=== PATIENT | female | born 1985 | race African-American/Black ===

== ENCOUNTER 2017-01-28 16:32 | Emergency (ER) | payer BC ==
[2017-01-28 17:00] VITALS: BP 137/88
[2017-01-28] MEDS ORDERED: Sodium Chloride 0.9% 10 ML Syringe FLUSH PRN (17:47)
[2017-01-28] MEDS ORDERED: HYDROmorphone 0.5 MG/0.5 ML Syringe IVPUSH ONE (17:47)
[2017-01-28] MEDS ORDERED: Sodium Chloride 0.9% 1,000 ML IV ONE (17:47)
[2017-01-28] MEDS ORDERED: HYDROmorphone 1 MG/ML Syringe IVPUSH ONE (19:16)
[2017-01-28] MEDS ORDERED: Iopamidol 612 MG/ML 150 ML Bottle IVPUSH ONE (19:23)
[2017-01-28] MEDS ORDERED: Sodium Chloride 0.9% 10 ML Syringe FLUSH ONE (19:23)
[2017-01-28] MEDS ORDERED: Diatrizoate Meglumine/Diatrizoate Sodium 37% 120 ML Bottle PO ONE (19:23)
[2017-01-28] MEDS ORDERED: Ondansetron 4 MG/2 ML SDV IVPUSH ONE (19:55)
--- NOTE | 2017-01-28 20:41 | CT ---
CT abdomen and pelvis Technique: Multiple axial sections were obtained from above the dome of the diaphragm inferiorly through the pubic symphysis. Intravenous and oral contrast was utilized. Delayed images were obtained through the bladder. Comparison: No previous abdominal and pelvic CT exam is available. Findings: Visualized lung bases are clear. Liver shows no focal parenchymal abnormality. Gallbladder shows no calcified gallstones. Spleen appears within normal limits. Adrenal glands show no nodule. Pancreas is within normal limits. Kidneys show symmetric contrast enhancement without hydronephrosis or mass. Adrenal glands show no nodules. Aorta shows no aneurysmal dilatation. No retroperitoneal adenopathy or mesenteric abnormalities are seen. No pelvic mass or adenopathy is seen. IUD is present within the endometrial cavity although appears low in position within the lower uterine segment. No free fluid or inflammatory change is seen. No bowel dilatation is seen. Appendix is not visualized. Delayed images shows contrast within the bladder. Bone window settings were reviewed which appears within normal limits for the patient's age. Impression: 1. IUD position is low within the uterus within the lower uterine cavity. 2. Appendix not visualized. 3. CT study of the abdomen and pelvis shows nothing acute. Diagnostic code #3
--- NOTE | 2017-01-28 20:49 | EDM.PDOC ---
ED HPI GENERAL MEDICAL PROBLEM - General Chief Complaint: Gastrointestinal Problem Stated Complaint: ABD PAIN,VOMITING Time Seen by Provider: 01/28/17 18:25 Source of Information: Reports: Patient History Limitations: Reports: No Limitations - History of Present Illness INITIAL COMMENTS - FREE TEXT/NARRATIVE: 31 year old female presents for evaluation and treatment of epigastric and RLQ abdominal pain. Patient reports she has been feeling nauseated for the last few weeks. She reports last night she took her nightly metformin. She then had one episode of vomiting last night. Reports today she developed epigastric pain. Reports the pain is an 8/10. States the pain is in the epigastric area and radiates interiorly into her abdomen. Reports it hurts to move. She denies any fevers, chest pain or shortness of breath. Reports diarrhea but state she always has diarrhea and darker stools. Patient reports the RLQ abdominal pain started once she arrived in the ED. Previous abdominal surgeries include a . Patient is a type 2 diabetic. Reports her sugars normally run in the 300s. Upper Abdominal Pain Score (Numeric/FACES): 9 - Related Data Allergies Allergy/AdvReac Type Severity Reaction Status Date / Time No Known Allergies Allergy Verified 01/28/17 16:56 Home Meds: Home Meds Acetaminophen/HYDROcodone [[place] 325-5 MG] 1 tab PO Q6H PRN #10 tab 11/10/13 [Rx ] Bactrim. 11/10/13 [History] Envocana. 11/10/13 [History] Levemir Insulin. 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: , Other (See Below) Other OB/BYN History: Neurological History: Reports: Migraines Psychiatric History: Reports: Depression Endocrine/Metabolic History: Reports: Diabetes, Type II Dermatologic History: Reports: Eczema - Past Surgical History Neurological Surgical History: Reports: None Social & Family History - Family History Family Medical History: Noncontributory - Tobacco Use Smoking Status *Q: Never Smoker Second Hand Smoke Exposure: No - Caffeine Use Caffeine Use: Reports: Soda - Alcohol Use Days Per Week of Alcohol Use: 2 Number of Drinks Per Day: 5 Total Drinks Per Week: 10 - Recreational Drug Use Recreational Drug Use: No ED ROS GENERAL - Review of Systems Review Of Systems: See Below Constitutional: Reports: Decreased Appetite. Denies: Fever Respiratory: Denies: Shortness of Breath Cardiovascular: Denies: Chest Pain GI/Abdominal: Reports: Abdominal Pain (epigastric an RLQ), Diarrhea (chronically ), Decreased Appetite, Nausea (last night now resolved), Vomiting (x 1 ) : Reports: No Symptoms Musculoskeletal: Denies: Shoulder Pain, Back Pain ED EXAM, GI/ABD - Physical Exam Exam: See Below Exam Limited By: No Limitations General Appearance: Alert, WD/WN, No Apparent Distress, Obese Throat/Mouth: Normal Inspection, Normal Lips, Normal Voice, No Airway Compromise Respiratory/Chest: No Respiratory Distress, Lungs Clear, Normal Breath Sounds Cardiovascular: Normal Peripheral Pulses, Regular Rate, Rhythm, No Murmur GI/Abdominal Exam: Normal Bowel Sounds, Soft, Tender (epigastric and RLQ), Other (negative psosas sign and obturators sign). No: Distended, Guarding, Rigid, Rebound Neurological: Alert, Oriented, Normal Cognition Psychiatric: Normal Affect, Normal Mood Skin Exam: Warm, Dry, Normal Color Course - Vital Signs Last Recorded V/S: Last Vital Signs Temp 36.6 C 01/28/17 16:56 Pulse 96 01/28/17 16:56 Resp 16 01/28/17 16:56 BP 137/88 01/28/17 16:56 Pulse Ox 96 01/28/17 16:56 - Orders/Labs/Meds Labs: Laboratory Tests 01/28/17 01/28/17 01/28/17 Range/Units 17:47 18:00 18:00 WBC 11.45 H (3.98-10.04) K/mm3 RBC 4.77 (3.98-5.22) M/mm3 Hgb 14.8 (11.2-15.7) gm/L Hct 44.4 (34.1-44.9) % MCV 93.1 (79.4-94.8) fl MCH 31.0 (25.6-32.2) pg MCHC 33.3 (32.2-35.5) g/dl RDW Std Deviation 43.6 (36.4-46.3) fL Plt Count 232 (182-369) K/mm3 MPV 11.7 (9.4-12.3) fl Neutrophils % (Manual) 79 H (40-60) % Band Neutrophils % 0 (0-10) % Lymphocytes % (Manual) 16 L (20-40) % Atypical Lymphs % 0 % Monocytes % (Manual) 4 (2-10) % Eosinophils % (Manual) 0 L (0.7-5.8) % Basophils % (Manual) 1 (0.1-1.2) Platelet Estimate Adequate Plt Morphology Comment Normal RBC Morph Comment Normal Sodium 136 (136-145) mEq/L Potassium 4.1 (3.5-5.1) mEq/L Chloride 98 (98-107) mEq/L Carbon Dioxide 26 (21-32) mEq/L Anion Gap 16.1 H (5-15) BUN 7 (7-18) mg/dL Creatinine 0.7 (0.55-1.02) mg/dL Est Cr Clr Drug Dosing 99.63 mL/min Estimated GFR (MDRD) > 60 (>60) mL/min BUN/Creatinine Ratio 10.0 L (14-18) Glucose 290 H (74-106) mg/dL Calcium 9.5 (8.5-10.1) mg/dL Total Bilirubin 0.4 (0.2-1.0) mg/dL AST 12 L (15-37) U/L ALT 25 (14-59) U/L Alkaline Phosphatase 104 (46-116) U/L C-Reactive Protein 1.0 (<1.0) mg/dL Total Protein 8.1 (6.4-8.2) g/dl Albumin 3.9 (3.4-5.0) g/dl Globulin 4.2 gm/dL Albumin/Globulin Ratio 0.9 L (1-2) Lipase 65 L (73-393) U/L HCG, Qual Negative (NEGATIVE) Urine Color (Yellow) Urine Appearance (Clear) Urine pH (5.0-8.0) Ur Specific [place] (1.005-1.030) Urine Protein (Negative) Urine Glucose (UA) (Negative) Urine Ketones (Negative) Urine Occult Blood (Negative) Urine Nitrite (Negative) Urine Bilirubin (Negative) Urine Urobilinogen (0.2-1.0) Ur Leukocyte Esterase (Negative) Urine RBC (0-5) /hpf Urine WBC (0-5) /hpf Ur Epithelial Cells (0-5) /hpf Urine Bacteria (FEW) /hpf Urine Mucus (FEW) /hpf 01/28/17 Range/Units 19:07 WBC (3.98-10.04) K/mm3 RBC (3.98-5.22) M/mm3 Hgb (11.2-15.7) gm/L Hct (34.1-44.9) % MCV (79.4-94.8) fl MCH (25.6-32.2) pg MCHC (32.2-35.5) g/dl RDW Std Deviation (36.4-46.3) fL Plt Count (182-369) K/mm3 MPV (9.4-12.3) fl Neutrophils % (Manual) (40-60) % Band Neutrophils % (0-10) % Lymphocytes % (Manual) (20-40) % Atypical Lymphs % % Monocytes % (Manual) (2-10) % Eosinophils % (Manual) (0.7-5.8) % Basophils % (Manual) (0.1-1.2) Platelet Estimate Plt Morphology Comment RBC Morph Comment Sodium (136-145) mEq/L Potassium (3.5-5.1) mEq/L Chloride (98-107) mEq/L Carbon Dioxide (21-32) mEq/L Anion Gap (5-15) BUN (7-18) mg/dL Creatinine (0.55-1.02) mg/dL Est Cr Clr Drug Dosing mL/min Estimated GFR (MDRD) (>60) mL/min BUN/Creatinine Ratio (14-18) Glucose (74-106) mg/dL Calcium (8.5-10.1) mg/dL Total Bilirubin (0.2-1.0) mg/dL AST (15-37) U/L ALT (14-59) U/L Alkaline Phosphatase (46-116) U/L C-Reactive Protein (<1.0) mg/dL Total Protein (6.4-8.2) g/dl Albumin (3.4-5.0) g/dl Globulin gm/dL Albumin/Globulin Ratio (1-2) Lipase (73-393) U/L HCG, Qual (NEGATIVE) Urine Color Yellow (Yellow) Urine Appearance Clear (Clear) Urine pH 7.0 (5.0-8.0) Ur Specific [place] 1.015 (1.005-1.030) Urine Protein Negative (Negative) Urine Glucose (UA) 2+ H (Negative) Urine Ketones 2+ H (Negative) Urine Occult Blood Negative (Negative) Urine Nitrite Negative (Negative) Urine Bilirubin Negative (Negative) Urine Urobilinogen 0.2 (0.2-1.0) Ur Leukocyte Esterase Negative (Negative) Urine RBC Not seen (0-5) /hpf Urine WBC Not seen (0-5) /hpf Ur Epithelial Cells 0-5 (0-5) /hpf Urine Bacteria Rare (FEW) /hpf Urine Mucus Not seen (FEW) /hpf Meds: Medications Discontinued Medications Generic Name Dose Route Start Last Admin Trade Name Freq PRN Reason Stop Dose Admin Al Hydroxide/Mg Hydroxide 30 0 ml 01/28/17 20:58 01/28/17 21:07 ml/ Lidocaine HCl 15 ml PO 01/28/17 20:59 45 ml ONETIME ONE Administration Diatrizoate Meglum/Diatrizoate Sod 90 ml 01/28/17 19:23 01/28/17 20:12 Gastrografin 37% PO 01/28/17 19:24 90 ml ONETIME ONE Administration Hydromorphone HCl 0.5 mg 01/28/17 17:47 01/28/17 18:13 Dilaudid IVPUSH 01/28/17 17:48 0.5 mg ONETIME ONE Administration Hydromorphone HCl 1 mg 01/28/17 19:16 01/28/17 19:21 Dilaudid IVPUSH 01/28/17 19:17 1 mg ONETIME ONE Administration Sodium Chloride 1,000 mls @ 999 mls/hr 01/28/17 17:47 01/28/17 18:11 Normal Saline IV 01/28/17 18:47 999 mls/hr ONETIME ONE Administration Iopamidol 125 ml 01/28/17 19:23 01/28/17 20:12 Isovue-300 (61%) IVPUSH 01/28/17 19:24 125 ml ONETIME ONE Administration Ondansetron HCl 4 mg 01/28/17 19:55 01/28/17 20:00 Zofran IVPUSH 01/28/17 19:56 4 mg ONETIME ONE Administration Sodium Chloride 10 ml 01/28/17 17:47 01/28/17 18:15 Saline Flush FLUSH 10 ml ASDIRECTED PRN Administration Keep Vein Open Sodium Chloride 10 ml 01/28/17 19:23 01/28/17 20:13 Saline Flush FLUSH 01/28/17 19:24 10 ml ONETIME ONE Administration - Radiology Interpretation Free Text/Narrative:: CT of the abdomen and pelvis with IV and oral contrast impression per Dr. Henao : 1. IUD position is low within the uterus with the lower uterine cavity. 2. Appendix not visualized. 3. CT study of the abdomen and pelvis shows nothing acute. CT Results Date: 01/28/17 - Re-Assessments/Exams Free Text/Narrative Re-Assessment/Exam: 01/28/17 19:29 labs returned with wbc slightly elevated at 11.45. CRP is is still within normal limits at 1.0, but near the high side of normal. Glucose is 290. Will obtain a CT to further evaluate episgastric and RLQ abd pain. 01/28/17 21:[address] results with the patient. No acute process occurring at this time. Patient reports to me later that she often gets pain in the RLQ that comes and goes. Often resolves with tylenol. RLQ pain has resolved since coming to the ER. epigastric pain slightly improved. I believe this is likely from gastritis. Will have her start omeprazole. Departure - Departure Time of Disposition: 21:25 Disposition: Home, Self-Care 01 Condition: Fair Clinical Impression: Epigastric pain, Gastritis - Discharge Information Prescriptions: Omeprazole 20 mg PO DAILY #30 cap.cr Ondansetron [Zofran ODT] 4 mg PO Q8H #20 tab.dis Referrals: Pricila Garnica NP [Primary Care Provider] - Forms: ED Department Discharge Additional Instructions: Take the Zofran 1 tab sublingual every 8 hours as needed for nausea. Start the omeprazole 1 tab daily. Follow up with your primary care provider early next week for a recheck of your symptoms. Avoids spicy foods and alcohol. [id number] Tylenol or Motrin as needed for the right lower abdominal pain. Please return to the ER if your symptoms change or worsen.
[2017-01-28] MEDS ORDERED: Alum Hydrox/Mag Hydrox/Simeth 30 ML, Lidocaine 2% 15 ML PO ONE ×2 (20:58)
== END 2017-01-28 21:39 | disposition home or self-care (01) ==
LOC: JD.ED 16:32
DX: K29.70 Gastritis, unspecified, without bleeding (principal); E11.9 Type 2 diabetes mellitus without complications; Z79.84 Long term (current) use of oral hypoglycemic drugs; F32.9 Major depressive disorder, single episode, unspecified; Z79.899 Other long term (current) drug therapy
CPT/HCPCS: 36415; 74177; 80053; 81001; 83690; 84703; 85025; 86140; 96361; 96374; 96375; 96376; 99284; A9270; J1170; J2405; J7040; J7050; Q9963; Q9967

== ENCOUNTER 2017-02-25 00:26 | Emergency (ER) | payer BC ==
[2017-02-25 00:36] VITALS: BP 127/85
--- NOTE | 2017-02-25 01:45 | EDM.PDOC ---
ED HPI GENERAL MEDICAL PROBLEM - General Chief Complaint: General Stated Complaint: FEVER/COUGH/HEADACHE Time Seen by Provider: 02/25/17 00:42 Source of Information: Reports: Patient, RN Notes Reviewed History Limitations: Reports: No Limitations - History of Present Illness INITIAL COMMENTS - FREE TEXT/NARRATIVE: The patient states that she has had a cough and headache since Thursday, 2016. Her cough is predominantly dry, occasionally productive of greenish sputum. She states that she was seen by her PCP, Pricila Garnica, today. She states that no tests were done, but that she was told that she has bronchitis. She was prescribed Levaquin, and has taken a single dose today. She states that she also took some NyQuil today, along with some cough drops. She now presents to the ED stating that the Levaquin has not helped. She reports a fever up to 101.5 around 00:30 this morning (her temperature was measured at 100.2 here in the ED). She reports shortness of breath, even at rest. She states that her cough is worse if she is upright, and during her examination, she had a paroxysm of cough. She denies wheezing. She confirms nasal congestion and a sore throat. She reports a headache with photophobia. No prior similar symptoms. Treatments H[employer] WORKER: Reports: Other (see below) Other Treatments H[employer] WORKER: Nyquil Throat Pain Score (Numeric/FACES): 10 - Related Data Allergies Allergy/AdvReac Type Severity Reaction Status Date / Time No Known Allergies Allergy Verified 02/25/17 00:33 Home Meds: Home Meds Levemir Insulin. 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: Psychiatric History: Reports: Depression, Other (See Below) (Insomnia) Endocrine/Metabolic History: Reports: Diabetes, Type II, Obesity/BMI 30+ Dermatologic History: Reports: Eczema - Past Surgical History Female Surgical History: Reports: Section (x 1) Neurological Surgical History: Reports: None Social & Family History - Family History Family Medical History: Noncontributory - Tobacco Use Smoking Status *Q: Never Smoker Second Hand Smoke Exposure: No - Caffeine Use Caffeine Use: Reports: Coffee, Soda, Tea - Alcohol Use Alcohol Use History: Yes Days Per Week of Alcohol Use: 2 Number of Drinks Per Day: 5 Total Drinks Per Week: 10 Alcohol Use Frequency: Socially - Recreational Drug Use Recreational Drug Use: No - Living Situation & Occupation Living situation: Reports: Single, with Family 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) ED ROS GENERAL - Review of Systems Review Of Systems: See Below Constitutional: Reports: No Symptoms HEENT: Reports: No Symptoms Respiratory: Reports: No Symptoms Cardiovascular: Reports: No Symptoms Endocrine: Reports: No Symptoms GI/Abdominal: Reports: No Symptoms : Reports: No Symptoms Musculoskeletal: Reports: No Symptoms Skin: Reports: No Symptoms Neurological: Reports: No Symptoms Psychiatric: Reports: No Symptoms Hematologic/Lymphatic: Reports: No Symptoms Immunologic: Reports: No Symptoms ED EXAM, GENERAL - Physical Exam Exam: See Below Exam Limited By: No Limitations General Appearance: Alert, WD/WN, No Apparent Distress Eye Exam: Bilateral Eye: Normal Inspection Ears: Normal External Exam, Normal Canal, Hearing Grossly Normal, Normal TMs Nose: Normal Inspection, Normal Mucosa, No Blood Throat/Mouth: Normal Inspection, Normal Lips, Normal Teeth, Normal Gums, Normal Oropharynx, Normal Voice, No Airway Compromise Head: Atraumatic, Normocephalic Neck: Normal Inspection, Supple, Non-Tender, Full Range of Motion. No: Lymphadenopathy (L), Lymphadenopathy (R) Respiratory/Chest: No Respiratory Distress, Lungs Clear, Normal Breath Sounds, No Accessory Muscle Use. No: Crackles, Rales, Wheezing Cardiovascular: Normal Peripheral Pulses, Regular Rate, Rhythm, No Gallop, No JVD, No Murmur, No Rub Peripheral Pulses: 4+: Radial (L), Radial (R) GI/Abdominal: Normal Bowel Sounds, Soft, Non-Tender, No Organomegaly, No Distention, No Abnormal Bruit, No Mass, Other (obese) (Female) Exam: Deferred Rectal (Female) Exam: Deferred Back Exam: Normal Inspection, Full Range of Motion, NT Extremities: Normal Inspection, Normal Range of Motion, No Pedal Edema, Normal Capillary Refill Neurological: Alert, Oriented, Normal Cognition, No Motor/Sensory Deficits Psychiatric: Normal Affect Skin Exam: Warm, Dry, Intact, Normal Color, No Rash Lymphatic: No Adenopathy Course - Vital Signs Last Recorded V/S: Last Vital Signs Temp 37.9 C 02/25/17 00:33 Pulse 124 H 02/25/17 00:33 Resp 20 02/25/17 00:33 BP 127/85 02/25/17 00:33 Pulse Ox 92 L 02/25/17 00:33 - Orders/Labs/Meds Orders: Active Orders 24 hr Category Date Time Status Chest 2V [CR] Stat Exams 02/25/17 01:01 Taken CULTURE STREP A CONFIRMATION [RM] Stat Lab 02/25/17 01:04 Results INR,PT,PROTHROMBIN TIME [COAG] Stat Lab 02/25/17 01:15 Received PTT,PARTIAL THROMBOPLSTIN TIME [COAG] Stat Lab 02/25/17 01:15 Received STREP SCRN A RAPID W CULT CONF [RM] Stat Lab 02/25/17 01:04 Results Labs: Laboratory Tests 02/25/17 02/25/17 02/25/17 Range/Units 01:15 01:15 01:15 WBC 13.84 H (3.98-10.04) K/mm3 RBC 4.51 (3.98-5.22) M/mm3 Hgb 14.3 (11.2-15.7) gm/L Hct 41.8 (34.1-44.9) % MCV 92.7 (79.4-94.8) fl MCH 31.7 (25.6-32.2) pg MCHC 34.2 (32.2-35.5) g/dl RDW Std Deviation 42.1 (36.4-46.3) fL Plt Count 191 (182-369) K/mm3 MPV 11.6 (9.4-12.3) fl Neutrophils % (Manual) 80 H (40-60) % Band Neutrophils % 3 (0-10) % Lymphocytes % (Manual) 12 L (20-40) % Atypical Lymphs % 0 % Monocytes % (Manual) 4 (2-10) % Eosinophils % (Manual) 0 L (0.7-5.8) % Basophils % (Manual) 1 (0.1-1.2) Platelet Estimate Adequate Plt Morphology Comment Normal Anisocytosis 1+ slight RBC Morph Comment Not Reportable D-Dimer, Quantitative 0.28 (0.19-0.59) mg/L Sodium 130 L (136-145) mEq/L Potassium 4.5 (3.5-5.1) mEq/L Chloride 94 L (98-107) mEq/L Carbon Dioxide 27 (21-32) mEq/L Anion Gap 13.5 (5-15) BUN 9 (7-18) mg/dL Creatinine 1.0 (0.55-1.02) mg/dL Est Cr Clr Drug Dosing 69.74 mL/min Estimated GFR (MDRD) > 60 (>60) mL/min BUN/Creatinine Ratio 9.0 L (14-18) Glucose 479 H (74-106) mg/dL Calcium 9.9 (8.5-10.1) mg/dL Total Bilirubin 0.4 (0.2-1.0) mg/dL AST 11 L (15-37) U/L ALT 24 (14-59) U/L Alkaline Phosphatase 120 H (46-116) U/L Total Protein 8.0 (6.4-8.2) g/dl Albumin 3.5 (3.4-5.0) g/dl Globulin 4.5 gm/dL Albumin/Globulin Ratio 0.8 L (1-2) Urine HCG, Qual (NEGATIVE) 02/25/17 Range/Units 01:15 WBC (3.98-10.04) K/mm3 RBC (3.98-5.22) M/mm3 Hgb (11.2-15.7) gm/L Hct (34.1-44.9) % MCV (79.4-94.8) fl MCH (25.6-32.2) pg MCHC (32.2-35.5) g/dl RDW Std Deviation (36.4-46.3) fL Plt Count (182-369) K/mm3 MPV (9.4-12.3) fl Neutrophils % (Manual) (40-60) % Band Neutrophils % (0-10) % Lymphocytes % (Manual) (20-40) % Atypical Lymphs % % Monocytes % (Manual) (2-10) % Eosinophils % (Manual) (0.7-5.8) % Basophils % (Manual) (0.1-1.2) Platelet Estimate Plt Morphology Comment Anisocytosis RBC Morph Comment D-Dimer, Quantitative (0.19-0.59) mg/L Sodium (136-145) mEq/L Potassium (3.5-5.1) mEq/L Chloride (98-107) mEq/L Carbon Dioxide (21-32) mEq/L Anion Gap (5-15) BUN (7-18) mg/dL Creatinine (0.55-1.02) mg/dL Est Cr Clr Drug Dosing mL/min Estimated GFR (MDRD) (>60) mL/min BUN/Creatinine Ratio (14-18) Glucose (74-106) mg/dL Calcium (8.5-10.1) mg/dL Total Bilirubin (0.2-1.0) mg/dL AST (15-37) U/L ALT (14-59) U/L Alkaline Phosphatase (46-116) U/L Total Protein (6.4-8.2) g/dl Albumin (3.4-5.0) g/dl Globulin gm/dL Albumin/Globulin Ratio (1-2) Urine HCG, Qual Negative (NEGATIVE) Meds: Medications Discontinued Medications Generic Name Dose Route Start Last Admin Trade Name Freq PRN Reason Stop Dose Admin Insulin Human Regular 10 unit 02/25/17 01:57 Humulin R SUBCUT 02/25/17 01:58 ONETIME STA Protocol Promethazine HCl/Codeine 5 ml 02/25/17 02:06 Phenergan With Codeine PO 02/25/17 02:07 ONETIME STA - Re-Assessments/Exams Free Text/Narrative Re-Assessment/Exam: 02/25/17 01:40 Two-view chest radiograph appears to be grossly normal. Cardiac silhouette is within normal limits. No pulmonary vascular congestion. No pleural effusions. No focal infiltrate. No pneumothorax. Formal read per the Radiologist pending. 02/25/17 01:52 The patient's CBC is remarkable for a WBC count elevated at 13.84 with 3% bandemia. The remainder of the CBC is normal. The patient's CMP is remarkable for sodium depressed at 130, however, the patient's blood glucose is elevated at 479, creating a pseudohyponatremia. The corrected sodium is 135. 02/25/17 01:58 I discussed the elevated blood glucose with the patient. She states that she has been drinking a lot of juice recently. She is agreeable to receiving 10 units of regular insulin. 02/25/17 02:11 Test results discussed with the patient. Demi's workup is grossly unremarkable, with the exception of the elevated blood glucose. I believe her cough and fever are due to a viral URI with postnasal drip. I have ordered some Phenergan with codeine cough syrup, and will prescribe the same. As there is no finding of an infection, I am recommending that the patient discontinue the Levaquin. Departure - Departure Time of Disposition: 02:13 Disposition: Home, Self-Care 01 Condition: Good Clinical Impression: Viral URI with cough, Hyperglycemia due to type 2 diabetes mellitus - Discharge Information Prescriptions: Codeine/Promethazine [Phenergan with Codeine] 5 ml PO QPM #5 cup Referrals: Pricila Garnica NP [Primary Care Provider] - Forms: ED Department Discharge Additional Instructions: You were seen in the emergency room for a cough, fever, and headache. Workup in the ER included blood work, a rapid strep test, an influenza swab, a urine test, and a chest x-ray. Your workup found your blood sugar to be significantly elevated at 479. You were given insulin. The remainder of your workup was unremarkable. You do not have pneumonia. You do not have bronchitis. You do not have strep throat. You do not have influenza. Your symptoms are MOST LIKELY caused by a viral URI with postnasal drip. Unfortunately, there are no medicines to treat a viral URI - it will have to run its course. Take 5 mL of the cough syrup in the evening. Hopefully this will help control your cough and help you to sleep. Do not drive for 8 hours after taking this medicine. This medicine may cause constipation, so consider taking a stool softener. We recommend that you discontinue taking the Levaquin. We recommend that you throw it in the trash - do not flush it down the toilet. If any other problems, please do not hesitate to return to the ER. - My Orders Last 24 Hours: My Active Orders 02/25/17 01:01 Chest 2V [CR] Stat 02/25/17 01:04 CULTURE STREP A CONFIRMATION [RM] Stat STREP SCRN A RAPID W CULT CONF [RM] Stat 02/25/17 01:15 INR,PT,PROTHROMBIN TIME [COAG] Stat PTT,PARTIAL THROMBOPLSTIN TIME [COAG] Stat - Assessment/Plan Last 24 Hours: My Active Orders 02/25/17 01:01 Chest 2V [CR] Stat 02/25/17 01:04 CULTURE STREP A CONFIRMATION [RM] Stat STREP SCRN A RAPID W CULT CONF [RM] Stat 02/25/17 01:15 INR,PT,PROTHROMBIN TIME [COAG] Stat PTT,PARTIAL THROMBOPLSTIN TIME [COAG] Stat
[2017-02-25] MEDS ORDERED: Insulin Regular, Human 100 Units/ML 3 ML Vial SUBCUT STA (01:57)
[2017-02-25] MEDS ORDERED: Codeine/Promethazine 10-6.25 MG/5 ML Syrup 5 ML UD Cup PO STA (02:06)
--- NOTE | 2017-02-25 07:17 | CR ---
Chest: Two views of the chest were obtained. Comparison: No prior study. Heart size and mediastinum are within normal limits. Lungs are clear. Bony structures are unremarkable. Impression: 1. Nothing acute is appreciated on two-view chest x-ray. Diagnostic code #1
== END 2017-02-25 02:36 | disposition home or self-care (01) ==
LOC: JD.ED 00:26
DX: J06.9 Acute upper respiratory infection, unspecified (principal); E11.65 Type 2 diabetes mellitus with hyperglycemia; E66.9 Obesity, unspecified; Z79.4 Long term (current) use of insulin; Z79.899 Other long term (current) drug therapy; Z68.35 Body mass index [BMI] 35.0-35.9, adult
CPT/HCPCS: 36415; 71020; 80053; 81025; 85025; 85379; 85610; 85730; 87081; 87430; 87804; 96372; 99284; A9270; J1817; 99283

== ENCOUNTER 2017-09-24 06:27 | Day surgery (SDC) | payer BC ==
[~2017-09-24 06:27] MED LIST: Lactated Ringers 1,000 ML IV SCH; Lidocaine 1%/Sod Bicarbonate in NS 8.4% 1 ML Syringe IDERM PRN; Sodium Chloride 0.9% 10 ML Syringe FLUSH PRN
[2017-09-24] MEDS ORDERED: Propofol 200 MG/20 ML SDV ONE (06:43)
[2017-09-24] MEDS ORDERED: Midazolam 1 MG/ML 2 ML SDV ONE (06:43)
[2017-09-24] MEDS ORDERED: fentaNYL 250 MCG/5 ML SDV ONE (06:43)
[2017-09-24] MEDS ORDERED: Ondansetron 4 MG/2 ML SDV ONE (06:44)
[2017-09-24] MEDS ORDERED: Lidocaine 1% 4 ML ONE (06:44)
[2017-09-24] MEDS ORDERED: Dexamethasone 4 MG/ML 5 ML MDV ONE (06:44)
[2017-09-24] MEDS ORDERED: ceFAZolin 1 GM Vial ONE (06:45)
[2017-09-24] MEDS: Sodium Chloride 0.9% 1,000 ML IV SCH ×2 (06:50→08:58)
--- NOTE | 2017-09-24 07:00 | PCM.PREANE ---
Preanesthetic Assessment - Procedure Proposed Procedure: Right ulnar nerve decompression - Anesthesia/Transfusion/Family Hx Anesthesia History: Prior Anesthesia Without Reaction Family History of Anesthesia Reaction: No Transfusion History: No Prior Transfusion(s) Intubation History: Unknown - Review of Systems General: No Symptoms Pulmonary: No Symptoms Cardiovascular: No Symptoms Gastrointestinal: No Symptoms Neurological: No Symptoms Other: Reports: Diabetes (type 2 ), Depression - Physical Assessment NPO Status Date: 09/23/17 NPO Status Time: 23:59 Pulse: 106 O2 Sat by Pulse Oximetry: 95 Respiratory Rate: 20 Blood Pressure: 120/74 Temperature: 37.0 C Height: 1.63 m Weight: 108.862 kg ASA Class: 2 Mental Status: Alert & Oriented x3 Airway Class: Mallampati = 1 Dentition: Reports: Missing Tooth/Teeth (left molar missing ) Thyro-Mental Finger Breadths: 3 Mouth Opening Finger Breadths: 3 ROM/Head Extension: Full Lungs: Clear to Auscultation, Normal Respiratory Effort Cardiovascular: Regular Rate, Regular Rhythm - Lab Values: Laboratory Last Values MRSA (PCR) Negative 09/22/17 14:37 - Allergies Allergies/Adverse Reactions: Allergies Allergy/AdvReac Type Severity Reaction Status Date / Time No Known Allergies Allergy Verified 09/23/17 16:09 - Blood Blood Available: No - Anesthesia Plan Pre-Op Medication Ordered: None - Acknowledgements Anesthesia Type Planned: General Anesthesia Pt an Appropriate Candidate for the Planned Anesthesia: Yes Alternatives and Risks of Anesthesia Discussed w Pt/Guardian: Yes Pt/Guardian Understands and Agrees with Anesthesia Plan: Yes PreAnesthesia Questionnaire HEENT History: Reports: Impaired Vision, Other (See Below) Other HEENT History: glasses Cardiovascular History: Reports: None Respiratory History: Reports: Other (See Below) Other Respiratory History: URI Gastrointestinal History: Reports: Gastritis, Other (See Below) Other Gastrointestinal History: abdominal pain Genitourinary History: Reports: 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 SUBSTANCE ABUSE History: Reports: Other OB/BYN History: , HPV Musculoskeletal History: Reports: None Neurological History: Reports: Migraines Psychiatric History: Reports: Depression, Other (See Below) Endocrine/Metabolic History: Reports: Diabetes, Type II, Obesity/BMI 30+ Hematologic History: Reports: Anemia Immunologic History: Reports: None Oncologic (Cancer) History: Reports: None Dermatologic History: Reports: Eczema - Past Surgical History Head Surgeries/Procedures: Reports: None HEENT Surgical History: Reports: None Cardiovascular Surgical History: Reports: None Respiratory Surgical History: Reports: None Female Surgical History: Reports: Section Endocrine Surgical History: Reports: None Neurological Surgical History: Reports: None Musculoskeletal Surgical History: Reports: None Oncologic Surgical History: Reports: None Dermatological Surgical History: Reports: None - SUBSTANCE USE Smoking Status *Q: Never Smoker Second Hand Smoke Exposure: No Days Per Week of Alcohol Use: 2 Number of Drinks Per Day: 5 Total Drinks Per Week: 10 Recreational Drug Use History: No - HOME MEDS Home Medications: Home Meds Dulaglutide [Trulicity] 0.75 mg SQ WEEKLY 02/25/17 [History] Insulin Aspart [NovoLOG] 0 unit SUBCUT TID 02/25/17 [History] Zolpidem Tartrate [Ambien] 5 mg PO BEDTIME PRN 02/25/17 [History] Sertraline HCl [Zoloft] 100 mg PO DAILY 09/23/17 [History] Terconazole 1 appful VAG ASDIRECTED PRN 09/23/17 [History] valACYclovir HCl [Valacyclovir] 500 mg PO ASDIRECTED PRN 09/23/17 [History] - CURRENT (IN HOUSE) MEDS Current Meds: Current Medications Lactated Ringer's (Ringers, Lactated) 1,000 mls @ 125 mls/hr IV ASDIRECTED KENISHA Stop: 09/24/17 23:00 Lidocaine/Sodium Bicarbonate (Buffered Lidocaine 1% In Ns 8.4%) 0.25 ml IDERM ONETIME PRN PRN Reason: Prior to IV Start Stop: 09/24/17 18:00 Sodium Chloride (Saline Flush) 10 ml FLUSH ASDIRECTED PRN PRN Reason: Keep Vein Open Stop: 09/24/17 18:00 Discontinued Medications Cefazolin Sodium (Ancef) Confirm Administered Dose 2 gm .ROUTE .STK-MED ONE Stop: 09/24/17 06:46 Dexamethasone (Dexamethasone) Confirm Administered Dose 20 mg .ROUTE .STK-MED ONE Stop: 09/24/17 06:45 Fentanyl (Sublimaze) Confirm Administered Dose 250 mcg .ROUTE .STK-MED ONE Stop: 09/24/17 06:44 Lidocaine HCl (Xylocaine-Mpf 1%) Confirm Administered Dose 4 mls @ as directed .ROUTE .STK-MED ONE Stop: 09/24/17 06:45 Midazolam HCl (Versed 1 Mg/Ml) Confirm Administered Dose 2 mg .ROUTE .STK-MED ONE Stop: 09/24/17 06:44 Ondansetron HCl (Zofran) Confirm Administered Dose 4 mg .ROUTE .STK-MED ONE Stop: 09/24/17 06:45 Propofol (Diprivan 20 Ml) Confirm Administered Dose 200 mg .ROUTE .STK-MED ONE Stop: 09/24/17 06:44
[2017-09-24] MEDS: Bupivacaine 0.25% 30 ML SDV ONE ×2 (07:42→07:58)
--- NOTE | 2017-09-24 08:22 | PCM.POSTAN ---
POST ANESTHESIA ASSESSMENT - MENTAL STATUS Mental Status: Alert, Oriented - VITAL SIGNS Pulse Rate: 107 SaO2: 92 Resp Rate: 15 Blood Pressure: 123/79 Temperature: 36.8 C - RESPIRATORY Respiratory Status: Respiratory Rate WNL, Airway Patent, O2 Saturation Stable, Supplemental Oxygen - CARDIOVASCULAR CV Status: Pulse Rate WNL, Blood Pressure Stable - GASTROINTESTINAL GI Status: No Symptoms - PAIN Pain Score: 0 - POST OP HYDRATION Hydration Status: Adequate & Stable
[2017-09-24] MEDS ORDERED: Meperidine PF 50 MG/ML Syringe IVPUSH PRN (08:24)
[2017-09-24] MEDS ORDERED: Ondansetron 4 MG/2 ML SDV IVPUSH PRN (08:24)
[2017-09-24] MEDS ORDERED: fentaNYL 100 MCG/2 ML SDV IVPUSH PRN (08:24)
[2017-09-24] MEDS ORDERED: diphenhydrAMINE 50 MG/ML SDV IVPUSH PRN (08:24)
[2017-09-24] MEDS: HYDROmorphone 0.5 MG/0.5 ML Syringe IVPUSH ONE ×2 (08:50→09:10)
[2017-09-24] MEDS ORDERED: HYDROmorphone 0.5 MG/0.5 ML Syringe IVPUSH ONE (09:10)
[2017-09-24] MEDS ORDERED: Acetaminophen/HYDROcodone 325-5 MG Tab PO SCH (10:00)
--- NOTE | 2017-09-24 12:36 | PCM48HPAN ---
Post Anesthesia Note - EVALUATION WITHIN 48HRS OF ANESTHETIC Vital Signs in Normal Range: Yes Patient Participated in Evaluation: Yes Respiratory Function Stable: Yes Airway Patent: Yes Cardiovascular Function Stable: Yes Hydration Status Stable: Yes Pain Control Satisfactory: Yes Nausea and Vomiting Control Satisfactory: Yes Mental Status Recovered: Yes
[2017-09-24 13:01] VITALS: BP 128/73
--- NOTE | 2017-10-02 07:13 | PCM.OPNOTE ---
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
--- NOTE | 2017-10-02 07:52 | OR ---
DATE OF OPERATION: 09/24/2017 SURGEON: Ashu Leone MD OPERATION PERFORMED: Right ulnar nerve decompression. PREOPERATIVE DIAGNOSIS: Right ulnar nerve compression neuropathy. POSTOPERATIVE DIAGNOSIS: Right ulnar nerve compression neuropathy. ANESTHESIA: General LMA with local primary. ANESTHESIA PROVIDER: Paul Flores. AIRFREIGHT OPERATIONS AGENT: Ivonne Siddiqi PA-C. ESTIMATED BLOOD LOSS: 10 mL. COMPLICATIONS: None. CONDITION: Stable. DESCRIPTION OF PROCEDURE: The patient was identified in the preop holding area where proper site was marked and identified by the surgeon. The patient was taken back to the operating theater where after adequate anesthesia, the patient's right upper extremity was sterilely prepped and draped in the usual sterile fashion. OR time-out was performed. The patient received 2 g of IV Ancef. A sterile tourniquet was then applied and the right upper extremity was exsanguinated. Tourniquet was insufflated to 250 mmHg. At this time, an incision was made centered over the cubital tunnel up to the triceps fascia. Incision was made and blunt dissection was taken down between the head of the medial and middle heads of the triceps. Ulnar nerve was identified and at this time, decompression was performed all the way up from the triceps fascia, all the way to the cubital tunnel into the flexor forearm fascia. At this time, there was no significant instability of the nerve and the patient's elbow was brought through a full range of motion. It was found to be fully decompressed proximally, all the way to distally with no signs of instability with good return of blood flow at this time, adequate saline was irrigated through the wound. 2-0 Vicryl was used subcutaneously and brett used for the skin. The patient had a sterile soft dressing applied as well as a posterior slab splint and tolerated the procedure well. MMODAL /[id number]
== END 2017-09-24 12:27 | disposition home or self-care (01) ==
LOC: JD.SDS 06:27
PROVIDERS: ATTEND Orthopaedic Surgery
DX: G56.21 Lesion of ulnar nerve, right upper limb (principal); E11.65 Type 2 diabetes mellitus with hyperglycemia; F32.9 Major depressive disorder, single episode, unspecified; Z79.899 Other long term (current) drug therapy; Z79.4 Long term (current) use of insulin
CPT/HCPCS: 64718; 81025; 82962; 87641; A9270; J0690; J1100; J1170; J2250; J2405; J3010; J3490; J7040; J7120; J2704